=== PATIENT | female | born 1950 | race Caucasian/White ===

== ENCOUNTER 2016-09-28 10:44 | Emergency (ER) | payer OTHER ==
[2016-09-28 11:43] LABS: EOSINOPHIL 8.9 % (0-7); HCT 45.4 % (37.0-47.0); HGB 14.9 g/dl (12.5-16.0); LYMPHOCYTE 26.2 % (15-48); MCH 29.7 pg (25.0-31.0); MCHC 32.8 g/dL (32.0-36.0); MCV 90.4 fL (78.0-100.0); MONOCYTE 7.7 % (0-12); MPV 11.5 fL (6.0-9.5); NEUTROPHIL 56.2 % (41-80); PLT 220 K/uL (150-400); RBC 5.02 M/uL (4.20-5.40); WBC 6.8 K/uL (4.0-10.5)
[2016-09-28 11:55] LABS: INR 1.02 (0.9-1.2); PTT 26.5 SECONDS (23.2-31.4)
[2016-09-28 12:05] LABS: CKMB 1.83 ng/mL (0.97-4.94); MYOGLOBIN 41 ng/mL (26-65); TROPONIN T < 0.010 ng/mL
[2016-09-28 12:06] LABS: PRO-BNP 283 pg/mL (0-125)
[2016-09-28 12:07] LABS: ALBUMIN 4.5 g/dL (3.4-4.8); BILIRUBIN - TOTAL 0.3 mg/dL (0.1-1.0); CREATININE 0.8 mg/dL (0.5-1.0); MAGNESIUM 2.03 mg/dL (1.40-2.10); POTASSIUM 4.5 mmol/L (3.5-5.1); TOTAL PROTEIN 7.5 g/dL (6.4-8.3)
== END 2016-09-28 12:36 | disposition home or self-care (01) ==
LOC: FER 10:44
PROVIDERS: Internal Medicine
DX: R07.89 Other chest pain (principal)
CPT/HCPCS: 36415; 71010; 80053; 82550; 82553; 83735; 83874; 83880; 84484; 85025; 85610; 85730; 93005; J1885